=== PATIENT | male | born 1990 | race Caucasian/White ===

== ENCOUNTER → 2021-10-09 | Outpatient (CLI) | payer OTHER ==
[2021-10-09 09:54] LABS: BASO # 0.02 K/mm3 (0.02-0.10); EOS # 0.11 K/mm3 (0.04-0.40); HEMATOCRIT 45.5 % (42.0-52.0); HEMOGLOBIN 15.8 g/dL (13.5-18.0); LYMPH# 2.91 K/mm3 (1.50-4.00); MEAN CELL VOLUME 86 fl (78-100); MEAN CORPUSCULAR HEMOGLOBIN 30 pg (27-31); MEAN CORPUSCULAR HGB CONC 35 g/dL (33-37); MEAN PLATELET VOLUME 9.6 fl (7.4-10.4); NEU # 7.08 K/mm3 (1.40-6.50); PLATELET COUNT 255 K/mm3 (130-400); RED BLOOD COUNT 5.29 M/mm3 (4.20-5.60); WHITE BLOOD COUNT 10.9 K/mm3 (4.8-10.8)
[2021-10-09 10:04] LABS: ALBUMIN 4.4 g/dL (3.5-5.0); POTASSIUM 4.6 mmol/L (3.5-5.1)
[2021-10-09 10:06] LABS: CALCIUM 10.1 mg/dL (8.3-10.5)
[2021-10-09 10:07] LABS: TOTAL PROTEIN 7.5 g/dL (6.4-8.3)
[2021-10-09 10:09] LABS: TOTAL BILIRUBIN 0.4 mg/dL (0.2-1.2)
== END ==
LOC: LAB 09:36
PROVIDERS: Nurse Practitioner
DX: L03.211 Cellulitis of face (principal)

== ENCOUNTER → 2022-03-01 | Outpatient (CLI) | payer OTHER ==
[2022-03-01 07:44] LABS: BASO # 0.02 K/mm3 (0.02-0.10); EOS # 0.07 K/mm3 (0.04-0.40); EOS % 1.2 % (0.0-4.0); HEMATOCRIT 45.8 % (42.0-52.0); LYMPH# 2.42 K/mm3 (1.50-4.00); MEAN CELL VOLUME 85 fl (78-100); MEAN CORPUSCULAR HEMOGLOBIN 30 pg (27-31); MEAN CORPUSCULAR HGB CONC 35 g/dL (33-37); MEAN PLATELET VOLUME 9.9 fl (7.4-10.4); MONO # 0.62 K/mm3 (0.20-0.80); NEU # 2.63 K/mm3 (1.40-6.50); PLATELET COUNT 258 K/mm3 (130-400); RED CELL DISTRIBUTION WIDTH 11.7 % (11.5-14.5); WHITE BLOOD COUNT 5.8 K/mm3 (4.8-10.8)
[2022-03-01 07:47] LABS: ALBUMIN 4.4 g/dL (3.5-5.0); POTASSIUM 4.6 mmol/L (3.5-5.1)
[2022-03-01 07:48] LABS: CALCIUM 9.6 mg/dL (8.3-10.5)
[2022-03-01 07:50] LABS: TOTAL PROTEIN 7.5 g/dL (6.4-8.3)
[2022-03-01 07:52] LABS: TOTAL BILIRUBIN 0.6 mg/dL (0.2-1.2)
[2022-03-01 17:34] LABS: FOLLICLE STIMULATING HORMONE 2.6 mIU/mL (1.0-12.0); LUTENIZING HORMONE 6.4 mIU/mL (0.6-12.1)
== END ==
LOC: LAB 07:11
DX: Z00.00 Encounter for general adult medical examination without abnormal findings (principal); E29.1 Testicular hypofunction; F33.0 Major depressive disorder, recurrent, mild; R68.82 Decreased libido; Z87.891 Personal history of nicotine dependence

== ENCOUNTER → 2023-06-14 | Outpatient (CLI) | payer BC ==
[~2023-06-14] MED LIST: CLOMID; Iohexol 300 - 100 ML VIAL IV ONE; KETOROLAC10 MG PO; PANTOPRAZOLE SO40 MG; WELLBUTRIN SR150 M3
== END ==
LOC: RAD 08:47
DX: R10.32 Left lower quadrant pain (principal)
CPT/HCPCS: Q9967